=== PATIENT | female | born 1950 | race African-American/Black ===

== ENCOUNTER 2019-03-02 17:13 | Emergency (ER) | payer OTHER ==
[~2019-03-02] VITALS: Ht 152.4 cm; Wt 95.3 kg
[~2019-03-02 17:13] MED LIST: ASPI-482 PO; CLIN300C8 PO; METF10007 PO; OLME1TAB23 PO; OLME40TA12 PO; POTA20TA4 PO
[2019-03-02 17:18] VITALS: BP 119/77
[2019-03-02] MEDS ORDERED: HYDROcodone/APAP 5/325MG 1 TAB TABLET PO ONE (18:15)
[2019-03-02] MEDS ORDERED: KETOROLAC 60 MG/2 ML VIAL. IM ONE (18:15)
[2019-03-02] MEDS ORDERED: diazePAM 5 MG TABLET PO ONE (18:15)
[2019-03-02] MEDS ORDERED: predniSONE 10 MG TABLET PO ONE (18:15)
--- NOTE | 2019-03-02 18:16 | PHYS DOC ---
Past Medical History Past Medical History: Diabetes-Type II, High Cholesterol, Hypertension, Other Additional Past Medical Histor: CHRONIC BACK PAIN,HYPOKALEMIA Past Surgical History: Hysterectomy, Other Additional Past Surgical Histo: ANKLE,SPLENECTOMY Alcohol Use: None Drug Use: None Adult General Chief Complaint Chief Complaint: BACK PAIN OR INJURY HPI HPI Patient is a 69 year old female with a history of diabetes type 2, hypertension, high cholesterol, who presents to the ED today complaining of sharp intermittent 9 out of 10 bilateral low back pain radiating to the right lower extremity that began a month ago. Patient states she was seen at urgent care was diagnosed with sciatica, she states she went and saw the PCP, the PCP felt she has sciatica pain. She states she was started on physical therapy. She states she was also given prescription for hydrocodone and muscle relaxers. She states she's continued to take this medications with no relief. Patient states she would like imaging done to diagnose her with sciatica. Denies any known injury. Denies any loss of bowel bladder function. Patient's brian� comes to the Ed while i was talking to patient. He states he would like patient to be given some pain relief in the ED because they have a lot of activities coming up with 04 March and they do not think patient will make it with her current pain. Review of Systems Review of Systems Constitutional: Denies fever or chills [] GI: Denies abdominal pain, nausea, vomiting, bloody stools or diarrhea [] : Denies dysuria or hematuria [] Musculoskeletal: Reports bilateral low back pain radiating to the right lower extremity Integument: Denies rash or skin lesions [] Neurologic: Denies headache, focal weakness or sensory changes [] All other systems were reviewed and found to be within normal limits, except as documented in this note. Current Medications Current Medications Current Medications Medications (Trade) Dose Ordered Sig/Marlyn Start Time Stop Time Status Last Admin Dose Admin Acetaminophen/ Hydrocodone Bitart (Lortab 5/325) 1 tab 1X ONCE 03/02/19 18:15 03/02/19 18:16 DC Diazepam (Valium) 5 mg 1X ONCE 03/02/19 18:15 03/02/19 18:16 DC Ketorolac Tromethamine (Toradol Im) 60 mg 1X ONCE 03/02/19 18:15 03/02/19 18:16 DC Prednisone (Prednisone) 50 mg 1X ONCE 03/02/19 18:15 03/02/19 18:16 DC Allergies Allergies Allergies Coded Allergies Type Severity Reaction Last Updated Verified clindamycin Adverse Reaction Severe Nausea 11/30/13 Yes Physical Exam Physical Exam Constitutional: Well developed, well nourished, no acute distress, non-toxic appearance. [] Abdomen: Bowel sounds normal, soft, no tenderness, no masses, no pulsatile masses. [] Skin: Warm, dry, no erythema, no rash. [] Back: Diffuse paraspinal muscle tenderness bilateral lumbar spine worse on the right SI joint, no midline lumbar spine tenderness, no CVA tenderness. [] Extremities: No tenderness, no cyanosis, no clubbing, ROM intact, no edema. [] Neurologic: Alert and oriented X 3, normal motor function, normal sensory function, no focal deficits noted. [] Psychologic: Affect normal, judgement normal, mood normal. [] Current Patient Data Vital Signs Vital Signs Date Time Temp Pulse Resp B/P (MAP) Pulse Ox O2 Delivery O2 Flow Rate FiO2 03/02/19 17:18 97.6 71 20 119/77 (91) 98 Room Air 97.6 EKG EKG [] Radiology/Procedures Radiology/Procedures [] Course & Med Decision Making Course & Med Decision Making Pertinent Labs and Imaging studies reviewed. (See chart for details) This is a 69-year-old female patient presenting to the ED today with bilateral low back pain radiating to the right lower extremity for 1 month, no known injury. Patient has been seen at urgent care, has been seen by the PCP, was started on pain medications, muscle relaxer, and sent to physical therapy. She does not believe any of this is working. She has no known injury. She is no cauda equina syndrome symptoms. I spent an incredible amount of time talking to patient and significant other about her symptoms. We then talked about some diagnostic studies including x-ray, CT, and MRI which are not indicated c onsidering she has no injury and has no midline tenderness to the lumbar spine and has no cauda equina syndrome symptoms. This was a very long extensive conversation. We agreed patient should continue following up with her own PCP, also provided her pain clinic and a neurosurgeon for follow-up. She already has pain medicine at home, and muscle relaxers. I recommended Christina as well. Dragon Disclaimer Dragon Disclaimer This electronic medical record was generated, in whole or in part, using a voice recognition dictation system. Departure Departure Impression: Primary Impression: Sciatica of right side Additional Impression: Back pain Disposition: HOME, SELF-CARE Condition: STABLE Referrals: LILLI ARAYA MD (PCP) follow up next week DEWEY CONDON MD call his office and set up a follow up appointment DARLENE BASHIR MD Call his office tomorrow and set up a follow up appointment Patient Instructions: Back Pain, Adult, Sciatica with Rehab-SportsMed Additional Instructions: You were evaluated in the emergency room with back pain and sciatica. Please follow-up with provided specialist. We give you pain clinic doctor, we also gave you a neurosurgeon. Contact their offices tomorrow morning and set up a follow- up appointment. Please continue doing physical therapy, you can also see a chiropractor. Please follow-up with your primary care doctor as soon as you can. Problem Qualifiers Additional Impression: Back pain Back pain location: low back pain Chronicity: acute Back pain laterality: bilateral Sciatica presence: with sciatica Sciatica laterality: sciatica of right side Qualified Codes: M54.41 - Lumbago with sciatica, right side SAADIAADELITA TRUCK GREASER Mar 02, 2019 18:16
== END 2019-03-02 18:30 | disposition home or self-care (01) ==
LOC: ER 17:13
DX: M54.41 Lumbago with sciatica, right side (principal); M79.604 Pain in right leg; G89.29 Other chronic pain; E78.00 Pure hypercholesterolemia, unspecified; E11.9 Type 2 diabetes mellitus without complications; I10 Essential (primary) hypertension; Z90.710 Acquired absence of both cervix and uterus; Z88.1 Allergy status to other antibiotic agents
CPT/HCPCS: 96372; 99284; J1885; J7512